=== PATIENT | female | born 1950 | race Caucasian/White ===

== ENCOUNTER → 2017-06-25 | Outpatient (CLI) | payer OTHER | LOC: FIMAGING 13:45 | PROVIDERS: ATTEND Family Medicine Geriatric Medicine | DX: Z12.31 Encounter for screening mammogram for malignant neoplasm of breast (principal) | CPT/HCPCS: G0202 ==

== ENCOUNTER 2018-03-20 17:05 | Emergency (ER) | payer OTHER ==
[2018-03-20] MEDS ORDERED: PHYTONADIONE 2.5 MG/2.5 ML ORAL UDL PO ONE (17:59)
--- NOTE | 2018-03-20 17:59 | EDPHY ---
H & P Time Seen by Provider: 03/20/18 17:22 HPI/ROS: Chief complaint. Elevated INR HPI. Patient is a 67-year-old female who is on Coumadin for a mitral valve repair many years ago. Last week she had an upper respiratory infection and took azithromycin. When she had her INR checked yesterday it was 9.8 and then today 10.6. The patient took Coumadin yesterday but has not taken any since. Patient has no complaints of headache or bleeding. She did blow her nose and had some streaks of blood but did not have a bloody nose. Yesterday her stool seem to be dark but today is normal and brown. She has no abdominal pain. She is referred to our department for treatment of elevated INR ROS Constitutional. no fever/chills, no weakness Eyes. no problems with vision ENT. no sore throat, no nasal drainage Cardiovascular. no chest pain Respiratory. no shortness of breath, no cough Abdominal. no abdominal pain, no nausea/vomiting, no diarrhea . no problems urinating MS. no calf pain/swelling, no neck/back pain, no joint pain Skin. no rash Lymph. no swollen glands Neuro. no headache, no dizziness, no difficulty walking or with speech Past Medical/Surgical History: Mitral valve repair, insulin-dependent diabetes Social History: , daily smoker, no alcohol Smoking Status: Current some day smoker Physical Exam: General Appearance: Alert pleasant well-developed female no distress vital signs are stable Eyes: Pupils equal and round no pallor or injection. ENT, Mouth: Mucous membranes are moist. Respiratory: There are no retractions, lungs are clear to auscultation. Cardiovascular: Regular rate and rhythm. Gastrointestinal: Abdomen is soft and nontender, no masses, bowel sounds normal. Neurological: Awake and alert, sensory and motor exams grossly normal. Skin: Warm and dry, no rashes. Musculoskeletal: Neck is supple nontender. Extremities symmetrical, full range of motion. Psychiatric: Patient is oriented X 3, there is no agitation. Constitutional: Initial Vital Signs Temperature (C) 36.7 C 03/20/18 17:13 Heart Rate 81 03/20/18 17:13 Respiratory Rate 16 03/20/18 17:13 Blood Pressure 154/107 H 03/20/18 17:13 O2 Sat (%) 94 03/20/18 17:13 O2 Delivery Mode Room Air Allergies/Adverse Reactions: Sulfa (Sulfonamide Antibiotics) Allergy (Verified 03/20/18 17:16) Home Medications: Medication Instructions Recorded Coumadin 03/20/18 Humalog 03/20/18 Lantus 03/20/18 Medical Decision Making ED Course/Re-evaluation: Review of up-to-date for non bleeding elevated INR greater than 9 shows give the patient 5 mg of vitamin K, avoid nonsteroidals, daily or every other day INR checks until returns to normal, caution about activities that could result in head injury. Patient is given vitamin K in the emergency department On re-evaluations patient is stable. The patient, her , and I discussed treatment plan, crit precautions. I have written her a prescription to have her INR rechecked on Friday. They expressed understanding and agreement Differential Diagnosis: Elevated INR likely secondary to taking antibiotics. No evidence for bleeding at this point in time. - Data Points Medications Given: Discontinued Medications Phytonadione (Vitamin K) 5 mg PO EDNOW ONE Stop: 03/20/18 18:00 Last Admin: 03/20/18 18:22 Dose: 5 mg Departure - Departure Disposition: Home, Routine, Self-Care Clinical Impression: Elevated INR Condition: Good Instructions: Elevated INR (ED) Additional Instructions: Be cautious with activities where you might fall especially striking your head. Stop Coumadin until see your INR is back in normal range. Recheck your INR on Friday. You may need to have your INR rechecked on Friday and Friday as well until is back in normal range. Return for signs of bleeding including gums, nosebleed, bleeding from your bottom, worsening headache Referrals: Seamus Lorenzo MD [Primary Care Provider] - As per Instructions
[2018-03-20 18:28] VITALS: BP 131/79
== END 2018-03-20 18:28 | disposition home or self-care (01) ==
DX: R79.1 Abnormal coagulation profile (principal); F17.200 Nicotine dependence, unspecified, uncomplicated

== ENCOUNTER → 2018-09-16 | Outpatient (CLI) | payer OTHER | LOC: BMCIMAGING 13:19 | PROVIDERS: ATTEND Family Medicine Geriatric Medicine | DX: Z12.31 Encounter for screening mammogram for malignant neoplasm of breast (principal) ==